=== PATIENT | female | born 1940 | race Caucasian/White ===

== ENCOUNTER 2019-01-15 13:45 | Emergency (ER) | payer MEDICARE, OTHER ==
[~2019-01-15 13:45] MED LIST: ISOVUE-370 76%-LOCM 1 ML ONE
[2019-01-15 15:32] LABS: #Eosinphils 0.1 thou/uL (0.0-0.7); #Lymphocytes 1.6 thou/uL (1.20-3.40); #Monocytes 0.6 thou/uL (0.11-0.59); #Neutrophils 3.1 thou/uL (1.40-6.50); %Basophils 0.9 % (0.0-1.0); %Eosinophils 1.3 % (0.0-10.0); %Lymphocytes 30.1 % (21.0-51.0); %Monocytes 10.4 % (0.0-10.0); %Neutrophils 57.4 % (42.0-75.0); Hemoglobin 13.7 g/dL (12.0-16.0); Mean Corpuscular HGB CONC 33.2 g/dL (32.0-36.0); Mean Corpuscular Hemoglobin 33.1 pg (27.0-31.0); Mean Corpuscular Volume 99.7 fL (78.0-98.0); Mean Platelet Volume 6.5 fL (7.4-10.4); Platelet Count 367 thou/uL (130-400); RBC Distribution Width 12.5 % (11.5-14.5); Red Blood Cell (RBC) Count 4.14 mill/uL (4.20-5.40); White Blood Cell (WBC) Count 5.4 thou/uL (4.8-10.8)
[2019-01-15] MEDS ORDERED: Acetaminophen 325 MG TAB ONE (15:49)
[2019-01-15 15:53] LABS: ALT (SGPT) 23 U/L (8-55); AST (SGOT) 19 U/L (5-34); Albumin 4.3 g/dL (3.4-4.8); Alkaline Phosphatase 84 U/L (40-150); Anion Gap 14 mmol/L (10-20); BUN (Urea Nitrogen) 25 mg/dL (9.8-20.1); Bilirubin, Total 0.4 mg/dL (0.2-1.2); Calc. Creatinine Clearance 0 mL/min (70-130); Calcium 9.8 mg/dL (7.8-10.44); Carbon Dioxide 22 mmol/L (23-31); Chloride 106 mmol/L (98-107); Estimated GFR-MDRD 69; Globulin 2.8 g/dL (2.4-3.5); Glucose 96 mg/dL (83-110); Magnesium 2.2 mg/dL (1.6-2.6); Potassium 4.5 mmol/L (3.5-5.1); Protein, Total 7.1 g/dL (6.0-8.3); Sodium 137 mmol/L (136-145)
--- NOTE | 2019-01-15 16:53 | CT ---
CT angiogram head 01/15/2019 COMPARISON: Head CT 12/31/2018, CT angiogram head 07/24/2011 HISTORY: Headaches, history of intracranial aneurysm TECHNIQUE: Axial CT imaging at 5 mm intervals from vertex through skull base without contrast. Subseq uently, axial CT imaging obtained at 1.25 mm intervals from vertex through skull base with IV contrast using a CT angiogram protocol. Coronal and sagittal 3-D reformatted imaging obtained. FINDINGS: There is atherosclerotic calcification involving the distal vertebral arteries bilaterally. There is atherosclerotic calcification of the cavernous carotid arteries. There are multiple aneurysm clips in the middle cranial fossa on the right. There is evidence of prio r right craniotomy. The imaged paranasal sinuses/mastoid air cells are well aerated. No intracranial hemorrhage, midline shift, or mass effect. The postcontrast imaging demonstrates patency of the distal vertebral arteries bilaterally. There is encephalomalacia within bilateral frontal lobes, as seen on the prior examination, suggesting areas of prior insult/ischemia. The basilar artery is patent. Branches of the basilar artery appear grossly unremarkable. There is no saccular aneurysm, high-grade stenosis, or vascular occlusion involving the posterior circulation. There is encephalomalacia involving the inferior anterior aspect of the right temporal lobe adjacent to the aneurysm clips. Streak artifact associated with the aneurysm clips limits detailed assessment for aneurysm in the region of the MCA bifurcation, proximal M2 segments, and distal M1 seg ment on the right. The imaged extracranial ICA appears patent bilaterally. The M1 segment is unremarkable bilaterally. T he A1 segment is unremarkable bilaterally. There are prominent vascular structures along the peripheral aspect of the frontal lobes anteriorly, left greater than right. This is most prominent on the left, extending to the level of the cribriform plate. This may be associated with the ophthalmic arteries which are enlarged bilaterally, left greater than right. This appearance is unchanged when compared to CT angiogram performed 07/24/2011. 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 This includes a bulbou s enhancing structure in the left frontal region measuring 7 mm transverse dimension, unchanged when compared to the 2010 examination. This could represent a fusiform stable aneurysm, unchanged sin ce 2010. IMPRESSION: Stable CT angiogram of the head as detailed above. No intracranial hemorrhage. No acute f indings.
== END 2019-01-15 17:25 | disposition home or self-care (01) ==
LOC: ERS 13:45
DX: R51 Headache (principal); E11.9 Type 2 diabetes mellitus without complications; I10 Essential (primary) hypertension; Z79.899 Other long term (current) drug therapy; Z79.82 Long term (current) use of aspirin
CPT/HCPCS: 36415; 70496; 80053; 83735; 85025; Q9966

== ENCOUNTER 2022-04-02 09:01 | Outpatient (CLI) | payer MEDICARE, OTHER ==
[2022-04-02] MEDS ORDERED: Iopamidol 370 76% 100 ML VIAL ONE (15:05)
== END 2022-04-02 09:02 | disposition home or self-care (01) ==
LOC: CT 09:01
PROVIDERS: ATTEND Neurological Surgery
DX: M48.062 Spinal stenosis, lumbar region with neurogenic claudication (principal); I67.1 Cerebral aneurysm, nonruptured; M47.12 Other spondylosis with myelopathy, cervical region; M47.815 Spondylosis without myelopathy or radiculopathy, thoracolumbar region; M47.816 Spondylosis without myelopathy or radiculopathy, lumbar region; M47.813 Spondylosis without myelopathy or radiculopathy, cervicothoracic region
CPT/HCPCS: 70496; 72040; 72141; 72148; 82565; Q9967

== ENCOUNTER 2022-06-14 13:13 | Outpatient (CLI) | payer MEDICARE, OTHER ==
[2022-06-14 14:18] LABS: Hemoglobin 13.5 g/dL (12.0-15.5); Mean Corpuscular HGB CONC 36.1 g/dL (32.0-36.0); Mean Corpuscular Hemoglobin 31.9 pg (27.0-33.0); Mean Corpuscular Volume 88.4 fl (81.6-98.3); Mean Platelet Volume 9.2 fl (7.4-10.4); Platelet Count 273 10x3/uL (150-450); RBC Distribution Width 12.5 % (11.5-14.5); Red Blood Cell (RBC) Count 4.23 10x6/uL (3.90-5.03); White Blood Cell (WBC) Count 5.6 10x3/uL (3.5-10.5)
[2022-06-14 14:31] LABS: INR-International Normal Ratio 0.9; PTT 29.9 sec (22.0-33.0); Prothrombin Time 10.2 sec (9.5-12.1)
[2022-06-14 14:32] LABS: Anion Gap 14 mmol/L (10-20); BUN (Urea Nitrogen) 21 mg/dL (9.8-20.1); Calc. Creatinine Clearance 0 mL/min (70-130); Calcium 9.5 mg/dL (7.8-10.44); Carbon Dioxide 24 mmol/L (23-31); Chloride 96 mmol/L (98-107); Estimated GFR 80; Glucose 96 mg/dL (83-110); Potassium 4.8 mmol/L (3.5-5.1); Sodium 129 mmol/L (136-145)
== END 2022-06-14 13:14 | disposition home or self-care (01) ==
LOC: LABBT 13:13
PROVIDERS: ATTEND Neurological Surgery
DX: Z01.812 Encounter for preprocedural laboratory examination (principal); M50.01 Cervical disc disorder with myelopathy, high cervical region; M50.021 Cervical disc disorder at C4-C5 level with myelopathy
CPT/HCPCS: 80048; 85027; 85610; 85730